=== PATIENT | female | born 1940 | race Caucasian/White ===

== ENCOUNTER 2016-11-20 17:52 | Emergency (ER) | payer MEDICARE, BC ==
[~2016-11-20 17:52] MED LIST: AMBIEN10 MG PO; AMBIEN5 M1 PO; AMBIEN5 MG PO; AMOXICILLIN875 M1 PO; ARICEPT10 M2 PO; ASPIR 8181 M1 PO; BENZONATATE200 M1 PO; BENZONATATE200 MG PO; COUMADIN5 MG PO; CPAP; CYMBALTA30 M1 PO; CYMBALTA60 M1 PO; CYMBALTA60 MG PO; DOCUSATE CALCI100 MG PO; DOLOPHINE HCL5 MG PO; DONEPEZIL HCL5 M2 PO; FLECAINIDE ACE100 M1 PO; FOLGARD RX TAB1 EACH PO; GABAPENTIN100 MG PO; GABAPENTIN400 M3 PO; HYDROCODON-ACE1 EA16 PO; HYDROCODON-ACE1 EAC7 PO; INDERAL80 MG PO; K-DUR20 ME1 PO; KEFLEX500 M4 PO; LASIX20 M1 PO; LASIX40 MG PO; LISINOPRIL-HCTZ PO; LISINOPRIL-HCTZ1 TAB PO; LOPRE25 PO; LOPRESSOR50 M1 PO; METHADONE HCL5 M2 PO; METHADONE5 MG PO; METOPROLOL TART25 M1 PO; MULTIVITAMIN PO; NEURONTIN300 M1 PO; NEURONTIN400 MG PO; NORCO 5-325 TA1 EACH PO; NORCO 5/325 TAB1 TAB PO; NORTRIPTYLIHNE25 MG PO; NORTRIPTYLINE H25 M1 PO; NORTRIPTYLINE H25 MG PO; NORTRIPTYLINE H50 M1 PO; NORVASC5 M1 PO; NORVASC5 MG PO; PERCOCET 5-3251 EACH PO; PERCOCET 5/3251 TAB PO; PERCOCET 5MG/AP1 TAB PO; PLAVIX75 M1 PO; POTASSIUM CITR10 MEQ PO; POTASSIUM PO; PRISTIQ50 MG PO; PROTONIX40 M2 PO; PROVENTIL HFA6.7 GM PO; RASPBERRY KETO100 MG PO; REFRESH TEARS15 M1 OP; REQUIP4 MG PO; ROPINIROLE HCL2 M2 PO; STOOL SOFTENER1 EAC4 PO; STOOL SOFTENER100 M1 PO; TYLENOL325 M2 PO; UROCIT-K10 ME1 PO; VITAMIN B-121000 MC1 PO; VITAMIN B-650 M3 PO; VITAMIN B6100 MG PO; VITAMIN C500 M3 PO; VITAMIN C500 M6 PO; VITAMIN D1000 UNI3 PO; VITAMIN D31000 UNIT PO; VITAMIN D32000 UNI3 PO; XARELTO10 MG PO; XARELTO15 MG PO; ZESTRIL20 M3 PO; ZOFRAN4 M2 PO; ZYRTEC10 M7 PO; [UNRECOGNIZED DRUG - OTHER] PO
[2016-11-20 21:11] LABS: BASO % 0.9 % (0-2); BASO ABSOLUTE COUNT 0.1 tho/cmm (0.0-0.2); EOS % 3.6 % (0-7); EOSINOPHIL ABSOLUTE COUNT 0.2 tho/cmm (0.0-0.7); HCT-HEMATOCRIT 36.8 % (34.0-49.0); HGB-HEMOGLOBIN 11.9 gm/dl (12.0-15.5); LYMPH % 21.3 % (20-45); LYMPH ABSOLUTE COUNT 1.2 tho/cmm (0.8-4.5); MCH (MEAN CORPUSCULAR HGB) 31.6 pg (28.0-32.0); MCHC MEAN CORPUSCULAR HGB CONC 32.3 % (32.0-36.0); MCV (MEAN CELL VOLUME) 97.9 fl (82.0-96.0); MEAN PLATELET VOLUME 9.7 cmc (9.4-12.4); MONO % 9.6 % (0-12); MONOCYTE ABSOLUTE COUNT 0.6 tho/cmm (0.0-1.2); NEUTROPHIL ABSOLUTE COUNT 3.8 tho/cmm (1.6-8.0); NEUTROPHIL-AUTOMATED 3.8 tho/cmm (1.6-8.0); NEUTROPHILS % 64.6 % (40-80); PLATELET COUNT 238 tho/cmm (150-450); RED BLOOD COUNT 3.76 mil/cmm (4.00-5.20); WHITE BLOOD COUNT 5.8 tho/cmm (4.0-10.0)
[2016-11-20 21:15] LABS: PROTHROMBIN TIME 60.9 SECONDS (9.0-13.6)
[2016-11-20 21:24] LABS: ANION GAP 9 mmol/L (0-20); BLOOD UREA NITROGEN 23 mg/dl (6-24); CALCIUM 9.4 mg/dl (8.5-10.5); CARBON DIOXIDE-VENOUS 32 mmol/L (22-32); CHLORIDE 105 mmol/l (96-110); CREATININE 1.29 mg/dl (0.50-1.10); GLUCOSE 121 mg/dL (70-110); POTASSIUM 3.9 mmol/L (3.7-5.1); SODIUM 142 mmol/L (135-145); eGFR VALUE FOR BLACK 49 mL/Min
[2016-11-20] MEDS ORDERED: AMOXICILLIN875 M1 PO (21:49)
[2017-03-31] MEDS ORDERED: CEPHALEXIN500 M1 PO (07:56)
== END 2016-11-20 23:15 ==
LOC: EDMED 17:52
PROVIDERS: Emergency Medicine
PROC: 2Y41X5Z Packing of Nasal Region using Packing Material (ICD-10-PCS; principal; 2016-11-20)
DX: R04.0 Epistaxis (principal); I48.91 Unspecified atrial fibrillation; I10 Essential (primary) hypertension; Z79.01 Long term (current) use of anticoagulants
CPT/HCPCS: J3430

== ENCOUNTER 2016-12-11 13:52 | Emergency (ER) | payer MEDICARE, BC ==
[2017-03-31] MEDS ORDERED: CEPHALEXIN500 M1 PO (07:56)
== END 2016-12-11 15:45 ==
LOC: EDMED 13:52
PROC: 2Y41X5Z Packing of Nasal Region using Packing Material (ICD-10-PCS; principal; 2016-12-11)
DX: R04.0 Epistaxis (principal); I48.91 Unspecified atrial fibrillation; I10 Essential (primary) hypertension; Z90.49 Acquired absence of other specified parts of digestive tract; Z90.89 Acquired absence of other organs; Z98.49 Cataract extraction status, unspecified eye; Z90.710 Acquired absence of both cervix and uterus; Z98.890 Other specified postprocedural states; Z79.899 Other long term (current) drug therapy

== ENCOUNTER 2017-01-06 10:18 | Emergency (ER) | payer MEDICARE, BC ==
[2017-01-06] MEDS ORDERED: PAMELOR25 M1 PO (11:02)
[2017-01-06] MEDS ORDERED: POTASSIUM CHLO20 ME3 PO (11:03)
[2017-01-06] MEDS ORDERED: POTASSIUM PO (11:04)
[2017-01-06] MEDS ORDERED: PERCOCET 5-3251 EACH PO (11:05)
[2017-03-31] MEDS ORDERED: CEPHALEXIN500 M1 PO (07:56)
== END 2017-01-06 11:56 ==
LOC: EDMED 10:18
PROC: 0W3Q7ZZ Control Bleeding in Respiratory Tract, Via Natural or Artificial Opening (ICD-10-PCS; principal; 2017-01-06)
DX: R04.0 Epistaxis (principal)

== ENCOUNTER 2017-01-16 22:48 | Emergency (ER) | payer MEDICARE, BC ==
[~2017-01-16 22:48] MED LIST changes: +PAMELOR25 M1 PO; +POTASSIUM CHLO20 ME3 PO
[2017-01-16] MEDS ORDERED: AMOXICILLIN875 M1 PO (23:56)
[2017-03-31] MEDS ORDERED: CEPHALEXIN500 M1 PO (07:56)
== END 2017-01-17 00:28 ==
LOC: EDMED 22:48
PROC: 0W3Q7ZZ Control Bleeding in Respiratory Tract, Via Natural or Artificial Opening (ICD-10-PCS; principal; 2017-01-16)
DX: R04.0 Epistaxis (principal); I48.91 Unspecified atrial fibrillation; N18.9 Chronic kidney disease, unspecified